=== PATIENT | female | born 1995 | race Caucasian/White ===

== ENCOUNTER 2017-10-09 20:07 | Outpatient (CLI) | payer OTHER ==
[2017-10-09] MEDS: TERBUTALINE 1 MG/ML INJ SC ×2 (21:42→22:25)
[2017-10-09] MEDS: LACTATED RINGER'S 1,000 ML IV (21:43)
[2017-10-09 22:02] LABS: ADD UMIC NO; UR ASCORBIC ACID 40 mg/dL (NEGATIVE); UR BILIRUBIN (Dip) NEGATIVE (NEGATIVE); UR BLOOD (Dip) NEGATIVE (NEGATIVE); UR CLARITY CLEAR (CLEAR); UR COLOR YELLOW (YELLOW); UR GLUCOSE (Dip) NEGATIVE (NEGATIVE); UR KETONES (Dip) NEGATIVE (NEGATIVE); UR LEUKOCYTE ESTERASE (Dip) NEGATIVE Leu/ul (NEGATIVE); UR NITRITE (Dip) NEGATIVE (NEGATIVE); UR SPECIFIC GRAVITY (Dip) 1.029 (1.003-1.030); UR TOTAL PROTEIN (Dip) NEGATIVE (NEGATIVE); UR UROBILINOGEN (Dip) 1+ mg/dL (NEGATIVE)
[2017-10-09 22:12] LABS: RUPTURE FETAL MEMBRANES NEGATIVE (NEGATIVE)
== END 2017-10-09 23:55 | disposition home or self-care (01) ==
LOC: OBT 20:07 → L-D 20:07
DX: O47.03 False labor before 37 completed weeks of gestation, third trimester (principal); Z3A.32 32 weeks gestation of pregnancy
CPT/HCPCS: 36415; 76817; 76818; 81003; 84112; 87086; 96360; 96361; 96372

== ENCOUNTER 2017-11-14 09:47 | Outpatient (CLI) | payer OTHER ==
[2017-11-14] MEDS: LACTATED RINGER'S 1,000 ML IV (12:21)
== END 2017-11-14 15:00 | disposition home or self-care (01) ==
LOC: OBT 09:47 → L-D 09:47 → OBT 15:00
DX: O62.9 Abnormality of forces of labor, unspecified (principal); Z3A.37 37 weeks gestation of pregnancy
CPT/HCPCS: 36415; 76818; 96360; 96361

== ENCOUNTER 2017-11-16 13:25 | Outpatient (CLI) | payer OTHER | END 2017-11-16 19:52 | disposition home or self-care (01) | LOC: OBT 13:25 → L-D 13:25 → OBT 19:52 | DX: O62.9 Abnormality of forces of labor, unspecified (principal); O26.893 Other specified pregnancy related conditions, third trimester; M25.561 Pain in right knee; M79.661 Pain in right lower leg; Z3A.37 37 weeks gestation of pregnancy | CPT/HCPCS: 76818; 93971 ==

== ENCOUNTER 2017-11-19 10:01 | Outpatient (CLI) | payer OTHER ==
[2017-11-19 13:37] LABS: ADD UMIC YES; UR ASCORBIC ACID 40 mg/dL (NEGATIVE); UR BILIRUBIN (Dip) NEGATIVE (NEGATIVE); UR BLOOD (Dip) NEGATIVE (NEGATIVE); UR CLARITY SLIGHTLY CLOUDY (CLEAR); UR COLOR YELLOW (YELLOW); UR GLUCOSE (Dip) NEGATIVE (NEGATIVE); UR KETONES (Dip) NEGATIVE (NEGATIVE); UR LEUKOCYTE ESTERASE (Dip) NEGATIVE Leu/ul (NEGATIVE); UR MUCUS MODERATE /HPF (NONE SEEN); UR NITRITE (Dip) NEGATIVE (NEGATIVE); UR RBC 1 /HPF (0-5); UR SPECIFIC GRAVITY (Dip) 1.028 (1.003-1.030); UR SQUAMOUS EPITHELIAL CELL MODERATE /HPF (FEW); UR TOTAL PROTEIN (Dip) 1+ mg/dl (NEGATIVE); UR UROBILINOGEN (Dip) NEGATIVE (NEGATIVE); UR WBC 3 /HPF (0-5)
== END 2017-11-19 13:50 | disposition home or self-care (01) ==
LOC: OBT 10:01 → L-D 10:02 → OBT 13:50
DX: O36.8330 Maternal care for abnormalities of the fetal heart rate or rhythm, third trimester, not applicable or unspecified (principal); Z3A.38 38 weeks gestation of pregnancy
CPT/HCPCS: 76818; 81001; 87086

== ENCOUNTER 2017-11-21 10:06 | Outpatient (CLI) | payer OTHER ==
[2017-11-21 12:28] LABS: ADD UMIC YES; UR ASCORBIC ACID NEGATIVE (NEGATIVE); UR BACTERIA FEW /HPF (NONE SEEN); UR BILIRUBIN (Dip) NEGATIVE (NEGATIVE); UR BLOOD (Dip) NEGATIVE (NEGATIVE); UR CLARITY CLOUDY (CLEAR); UR COLOR YELLOW (YELLOW); UR GLUCOSE (Dip) NEGATIVE (NEGATIVE); UR KETONES (Dip) NEGATIVE (NEGATIVE); UR LEUKOCYTE ESTERASE (Dip) NEGATIVE Leu/ul (NEGATIVE); UR NITRITE (Dip) NEGATIVE (NEGATIVE); UR RBC 0 /HPF (0-5); UR SPECIFIC GRAVITY (Dip) 1.014 (1.003-1.030); UR SQUAMOUS EPITHELIAL CELL MANY /HPF (FEW); UR TOTAL PROTEIN (Dip) NEGATIVE (NEGATIVE); UR UROBILINOGEN (Dip) NEGATIVE (NEGATIVE); UR WBC 3 /HPF (0-5)
== END 2017-11-21 16:20 | disposition home or self-care (01) ==
LOC: OBT 10:06 → L-D 10:06 → OBT 16:20
DX: O62.9 Abnormality of forces of labor, unspecified (principal); Z3A.38 38 weeks gestation of pregnancy
CPT/HCPCS: 76818; 81001; 87086

== ENCOUNTER 2017-11-23 03:24 | Inpatient (IN) | payer OTHER ==
[2017-11-23] MEDS ORDERED: MISOPROSTOL 200 MCG TAB PR ×2 (05:30→19:00)
[2017-11-23] MEDS ORDERED: LIDOCAINE 1% (MPF) 30 ML INJ INJ (05:30)
[2017-11-23] MEDS ORDERED: IBUPROFEN 600 MG TAB PO (05:30)
[2017-11-23] MEDS ORDERED: CARBOPROST 250 MCG INJ IM ×2 (05:30→19:00)
[2017-11-23] MEDS ORDERED: OXYTOCIN 30 UNITS/LR 500 ML IV ×2 (05:30→19:00)
[2017-11-23] MEDS ORDERED: METHYLERGONOVINE 0.2 MG INJ IM ×2 (05:30→19:00)
[2017-11-23] MEDS ORDERED: BUTORPHANOL 2 MG INJ IV (05:30)
[2017-11-23] MEDS: LACTATED RINGER'S 1,000 ML IV* ×4 (05:55→18:38)
[2017-11-23 06:06] LABS: ADD MAN DIFF? NO
[2017-11-23 06:07] LABS: BASOPHILS % 0.2 % (0.0-2.0); EOSINOPHILS # 0.2 10^3/ul (0.0-0.5); EOSINOPHILS % 1.8 % (0.0-7.0); HEMATOCRIT 34.4 % (37.0-47.0); HEMOGLOBIN 11.2 g/dl (12.0-16.0); LYMPHOCYTES # 2.6 10^3/ul (0.8-2.9); LYMPHOCYTES % 29.1 % (15.0-51.0); MEAN CORPUSCULAR HEMOGLOBIN 26.8 pg (29.0-33.0); MEAN CORPUSCULAR HGB CONC 32.6 g/dl (32.0-37.0); MEAN CORPUSCULAR VOLUME 82.3 fl (82.0-101.0); MEAN PLATELET VOLUME 10.8 fl (7.4-10.4); MONOCYTE # 0.6 10^3/ul (0.3-0.9); MONOCYTES % 6.6 % (0.0-11.0); NEUTROPHIL # 5.4 10^3/ul (1.6-7.5); NEUTROPHILS % 61.7 % (39.0-77.0); PLATELET COUNT 264 10^3/UL (140-415); RED BLOOD COUNT 4.18 10^6/ul (4.20-5.40); RED CELL DISTRIBUTION WIDTH 14.8 % (11.5-14.5)
[2017-11-23 06:07] LABS: WHITE BLOOD COUNT 8.8 10^3/ul (4.8-10.8)
[2017-11-23 06:13] LABS: ADD UMIC YES; UR ASCORBIC ACID NEGATIVE (NEGATIVE); UR BACTERIA FEW /HPF (NONE SEEN); UR BILIRUBIN (Dip) NEGATIVE (NEGATIVE); UR BLOOD (Dip) 1+ mg/dL (NEGATIVE); UR CLARITY SLIGHTLY CLOUDY (CLEAR); UR COLOR YELLOW (YELLOW); UR GLUCOSE (Dip) NEGATIVE (NEGATIVE); UR KETONES (Dip) NEGATIVE (NEGATIVE); UR LEUKOCYTE ESTERASE (Dip) TRACE Leu/ul (NEGATIVE); UR NITRITE (Dip) NEGATIVE (NEGATIVE); UR RBC 1 /HPF (0-5); UR SPECIFIC GRAVITY (Dip) 1.013 (1.003-1.030); UR SQUAMOUS EPITHELIAL CELL MODERATE /HPF (FEW); UR TOTAL PROTEIN (Dip) NEGATIVE (NEGATIVE); UR UROBILINOGEN (Dip) NEGATIVE (NEGATIVE); UR WBC 11 /HPF (0-5)
[2017-11-23 06:32] LABS: INR 0.84; PROTIME 11.6 Sec (11.9-14.9); PT RATIO 0.9
[2017-11-23 06:33] LABS: PARTIAL THROMBOPLASTIN TIME 28.3 Sec (25.0-35.0)
[2017-11-23] MEDS: LACTATED RINGER'S 1,000 ML IV (06:37)
[2017-11-23 07:13] LABS: HEPATITIS B SURFACE ANTIGEN NEGATIVE (NEGATIVE)
[2017-11-23] MEDS ORDERED: FENTAnyl 2MCG/ML-ROPIV 0.2% 100 ML (07:16)
[2017-11-23] MEDS ORDERED: NALOXONE (0.4 MG/ML) INJ IV (11:00)
[2017-11-23] MEDS ORDERED: ONDANSETRON 4 MG INJ IV (11:00)
[2017-11-23] MEDS ORDERED: DIPHENHYDRAMINE 50 MG INJ IV (11:00)
[2017-11-23] MEDS: MINERAL OIL LIGHT 10 ML VIAL TOP (11:30)
[2017-11-23] MEDS: FENTAnyl 2MCG/ML-ROPIV 0.2% 100 ML BAG EPI (15:51)
[2017-11-23 16:10] LABS: RAPID PLASMA REAGIN NONREACTIVE (NR)
[2017-11-23] MEDS: OXYTOCIN 30 UNITS/LR 500 ML IV ×2 (16:57→17:35)
[2017-11-23] MEDS ORDERED: HYDROCODONE/APAP (5/325) TAB PO (19:00)
[2017-11-23] MEDS ORDERED: ZOLPIDEM 5 MG TAB PO (19:00)
[2017-11-23] MEDS: HYDROCODONE/APAP (5/325) TAB PO (20:29)
[2017-11-23] MEDS: MAGNESIUM HYDROXIDE 30ML CUP PO (20:29)
[2017-11-23] MEDS: SENNA/DOCUSATE NA (8.6MG/50MG) TAB PO (20:29)
[2017-11-23] MEDS: LANOLIN 7 GM TUBE TOP (20:30)
[2017-11-23] MEDS: WITCH HAZEL/GLYCERIN PAD PR (20:30)
[2017-11-23] MEDS: DIBUCAINE 1% 30 GM OINT PR (20:30)
[2017-11-23] MEDS: BENZOCAINE 20% 56 ML SPRAY TOP (20:30)
[2017-11-23] MEDS: CEPHALEXIN 500 MG CAP PO (23:34)
[2017-11-23] MEDS: IBUPROFEN 600 MG TAB PO (23:34)
[2017-11-24] MEDS: LACTATED RINGER'S 1,000 ML IV* ×2 (02:38→10:38)
[2017-11-24] MEDS: IBUPROFEN 600 MG TAB PO ×3 (06:40→18:13)
[2017-11-24] MEDS: CEPHALEXIN 500 MG CAP PO ×3 (06:42→18:13)
[2017-11-24] MEDS: MAGNESIUM HYDROXIDE 30ML CUP PO ×2 (09:07→21:42)
[2017-11-24] MEDS: SENNA/DOCUSATE NA (8.6MG/50MG) TAB PO ×2 (09:07→21:42)
[2017-11-24 09:45] LABS: ADD MAN DIFF? NO
[2017-11-24 09:57] LABS: BASOPHILS % 0.1 % (0.0-2.0); EOSINOPHILS # 0.2 10^3/ul (0.0-0.5); HEMATOCRIT 32.2 % (37.0-47.0); HEMOGLOBIN 10.2 g/dl (12.0-16.0); LYMPHOCYTES % 21.8 % (15.0-51.0); MEAN CORPUSCULAR HEMOGLOBIN 26.6 pg (29.0-33.0); MEAN CORPUSCULAR HGB CONC 31.7 g/dl (32.0-37.0); MEAN CORPUSCULAR VOLUME 83.9 fl (82.0-101.0); MEAN PLATELET VOLUME 10.8 fl (7.4-10.4); MONOCYTE # 0.3 10^3/ul (0.3-0.9); MONOCYTES % 2.8 % (0.0-11.0); NEUTROPHIL # 6.8 10^3/ul (1.6-7.5); NEUTROPHILS % 72.9 % (39.0-77.0); PLATELET COUNT 212 10^3/UL (140-415); RED BLOOD COUNT 3.84 10^6/ul (4.20-5.40); RED CELL DISTRIBUTION WIDTH 14.9 % (11.5-14.5)
[2017-11-24 09:57] LABS: WHITE BLOOD COUNT 9.3 10^3/ul (4.8-10.8)
[2017-11-24] MEDS: HYDROCODONE/APAP (5/325) TAB PO (13:07)
[2017-11-25] MEDS: IBUPROFEN 600 MG TAB PO ×3 (00:23→11:41)
[2017-11-25] MEDS: CEPHALEXIN 500 MG CAP PO ×3 (00:23→11:42)
[2017-11-25] MEDS: MAGNESIUM HYDROXIDE 30ML CUP PO (09:50)
[2017-11-25] MEDS: SENNA/DOCUSATE NA (8.6MG/50MG) TAB PO (09:50)
[2017-11-25] MEDS: DIPHTH/TET/ACEL PERTUSS (ADULT) 0.5 ML VIAL IM* (09:52)
[2017-11-25] MEDS: MEASLES,MUMPS,RUBELLA VACCINE INJ SC* (09:52)
[2017-11-25] MEDS: VARICELLA VACCINE LIVE/PF 1,350 UNIT/0.5 ML ML SC* (09:53)
== END 2017-11-25 17:12 | disposition home or self-care (01) | DRG 775 ==
LOC: OBT 03:24 → L-D 03:25 → OBT 05:20 → L-D 05:41 → PP1 18:17
PROC: 10E0XZZ Delivery of Products of Conception, External Approach (ICD-10-PCS; principal; 2017-11-23)
DX: O80 Encounter for full-term uncomplicated delivery (principal); Z3A.38 38 weeks gestation of pregnancy; Z37.0 Single live birth
CPT/HCPCS: 62319; 81001; 85025; 85610; 85730; 86592; 86850; 86900; 86901; 87086; 87340